=== PATIENT | male | born 1955 | race African-American/Black ===

== ENCOUNTER 2021-11-08 18:59 | Emergency (ER) | payer MEDICARE, OTHER, MEDICAID ==
[~2021-11-08] VITALS: Ht 175.3 cm; Wt 120.0 kg
[2021-11-08] MEDS ORDERED: ACETAMINOPHEN 325MG TABLET PO ONE (19:45)
[2021-11-08] MEDS ORDERED: IBUPROFEN 400MG TABLET PO ONE (19:45)
[2021-11-08] MEDS ORDERED: IBUP-2028 MT ×3 (21:51→21:58)
[2021-11-08] MEDS ORDERED: HYDR-4001 MT ×2 (21:51→21:58)
[2021-11-08 22:15] VITALS: BP 130/85
== END 2021-11-08 22:15 | disposition home or self-care (01) ==
LOC: ER 18:59
DX: S82.51XA Displaced fracture of medial malleolus of right tibia, initial encounter for closed fracture (principal); S82.401A Unspecified fracture of shaft of right fibula, initial encounter for closed fracture; M25.571 Pain in right ankle and joints of right foot; E11.9 Type 2 diabetes mellitus without complications; I10 Essential (primary) hypertension; Z86.73 Personal history of transient ischemic attack (TIA), and cerebral infarction without residual deficits; W01.0XXA Fall on same level from slipping, tripping and stumbling without subsequent striking against object, initial encounter; Y93.89 Activity, other specified; Y92.811 Bus as the place of occurrence of the external cause
CPT/HCPCS: 29515; 73590; 73610; 73630; 99284